=== PATIENT | female | born 1935 | race Caucasian/White ===

== ENCOUNTER 2017-07-14 13:15 | Emergency (ER) | payer MEDICARE ==
[2017-07-14] MEDS ORDERED: LEVOFLOXACIN 750MG/150ML D5W 750 MG/150 ML BAG IV STA (13:22)
[2017-07-14] MEDS ORDERED: DUONEB 0.5-3 MG/3 ml Neb IH ONE ×2 (13:22→14:07)
--- NOTE | 2017-07-14 13:27 | ERPHSYRPT ---
- History of Present Illness Time Seen by Provider: 07/14/17 13:24 Source: patient, EMS Physician History: mild to mod coughing and shortness of breath at [place] today, hx aspiration, denies any pain, hx cva and right side weakness, no fever, no injury Allergies/Adverse Reactions: No Known Drug Allergies Allergy (Verified 07/14/17 13:53) Home Medications: Hydrochlorothiazide 25 mg [hydroDIURIL 25 MG] 25 mg PO DAILY 01/02/12 [ History] Ibuprofen 200 mg [Motrin 200 mg] 200 mg PO BID 05/23/14 [History] Potassium Chloride 10 meq PO TID 05/23/14 [History] Citalopram Hydrobromide [Celexa] 10 mg PO DAILY 07/14/17 [History] Donepezil HCl [Aricept] 5 mg PO DAILY 07/14/17 [History] Esomeprazole Magnesium [Nexium] 20 mg PO DAILY 07/14/17 [History] Memantine HCl [Namenda] 10 mg PO DAILY 07/14/17 [History] Mirtazapine [Remeron] 7.5 mg PO DAILY 07/14/17 [History] Hx Tetanus, Diphtheria Vaccination/Date Given: (UNKNOWN) Hx Influenza Vaccination/Date Given: Yes (2011) Hx Pneumococcal Vaccination/Date Given: Yes (2011) - Review of Systems Constitutional: No Fever Eyes: No Eye Redness Ears, Nose, & Throat: No Mouth Pain Respiratory: Cough, Dyspnea, No Cyanosis Cardiac: No Chest Pain Abdominal/Gastrointestinal: No Abdominal Pain, No Vomiting Musculoskeletal: No Back Pain, No Neck Pain Skin: No Rash Neurological: No Dizziness - Past Medical History Pertinent Past Medical History: Yes Neurological History: Stroke ENT History: No Pertinent History Cardiac History: Hypertension Respiratory History: No Pertinent History Endocrine Medical History: No Pertinent History Musculoskeletal History: Other GI Medical History: GERD, Gallbladder Disease History: No Pertinent History Psycho-Social History: No Pertinent History Female Reproductive Disorders: No Pertinent History Other Medical History: had stroke at age 10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 - Past Surgical History Past Surgical History: Yes Neuro Surgical History: No Pertinent History Cardiac: No Pertinent History Respiratory: No Pertinent History Gastrointestinal: Cholecystectomy Genitourinary: No Pertinent History Musculoskeletal: No Pertinent History Female Surgical History: No Pertinent History - Social History Smoking Status: Never smoker Exposure to second hand smoke: No Alcohol Use: None Drug Use: none Patient Lives Alone: Yes Significant Family History: no pertinent family hx - Nursing Vital Signs Nursing Vital Signs: Initial Vital Signs Temperature 97.4 F 07/14/17 13:22 Pulse Rate 89 07/14/17 13:22 Respiratory Rate 16 07/14/17 13:22 Blood Pressure 151/83 07/14/17 13:22 O2 Sat by Pulse Oximetry 96 07/14/17 13:22 Pain Scale Pain Intensity 0 - Physical Exam General Appearance: no apparent distress Eye Exam: PERRL/EOMI, eyes nml inspection Ears, Nose, Throat Exam: normal pharynx Neck Exam: non-tender Respiratory Exam: wheezing, No respiratory distress, No accessory muscle use Cardiovascular/Chest Exam: regular rate/rhythm Abdominal/Gastrointestinal Exam: soft, No tenderness Extremity Exam: pelvis stable Neurologic Exam: alert, oriented x 3, cooperative Skin Exam: warm, dry SpO2 Interpretation: normal - Course Nursing assessment & vital signs reviewed: Yes EKG Interpreted by Me: Other (ekg 1 nsr 87, st elevation in v2 is exaggerated from 12/2011, and ekg [address] elevation in evolution) - Radiology Exams Chest X-ray Interpretation: Discussed w/ radiologist, No Pneumonia, No Pneumothorax - CT Exams Chest CT Interpretation: Discussed w/radiologist, No PE Ordered Tests: Active Orders 24 hr Category Date Time Status [employer] STAT Care 07/14/17 13:22 Active EKG-ER Only STAT Care 07/14/17 13:22 Active EKG-ER Only STAT Care 07/14/17 14:48 Active IV Insertion STAT Care 07/14/17 13:22 Active Oxygen-ED Only NASAL CANNULA 2 lpm Care 07/14/17 13:22 Active CHEST 1 VIEW (PORTABLE) Stat Exams 07/14/17 13:22 Completed CHEST WITH CONTRAST [CT] Stat Exams 07/14/17 14:29 Completed BLOOD CULTURE Stat Lab 07/14/17 13:35 Received CBC W DIFF Stat Lab 07/14/17 13:45 Completed CMP Stat Lab 07/14/17 13:45 Completed CULTURE,SPUTUM Stat Lab 07/14/17 13:22 Uncollected D-DIMER QUANTITATION Stat Lab 07/14/17 13:45 Completed Lactic Acid Stat Lab 07/14/17 13:22 Completed PROTIME WITH INR Stat Lab 07/14/17 13:45 Completed TROPONIN Q3H Lab 07/14/17 13:59 Completed TROPONIN Q3H Lab 07/14/17 16:25 Completed TROPONIN Q3H Lab 07/14/17 19:30 Ordered TROPONIN Q3H Lab 07/14/17 22:30 Ordered TROPONIN Q3H Lab 07/15/17 01:30 Ordered Respiratory Nebulizer STAT RT 07/14/17 13:23 Completed Medication Summary Discontinued Medications Generic Name Dose Route Start Last Admin Trade Name Freq PRN Reason Stop Dose Admin Albuterol/Ipratropium 3 ml 07/14/17 13:22 07/14/17 14:13 Duoneb 0.5-3 Mg/3 Ml Neb IH 07/14/17 13:23 3 ml STAT ONE Administration Albuterol/Ipratropium Confirm 07/14/17 14:07 Duoneb 0.5-3 Mg/3 Ml Neb Administered 07/14/17 14:08 Dose 3 ml IH .STK-MED ONE Levofloxacin/Dextrose 750 mg in 150 mls @ 100 mls/hr 07/14/17 13:22 07/14/17 13:59 Levofloxacin 750mg/150ml D5w IV 07/14/17 14:51 100 mls/hr STAT STA 100 mls/hr Administration Levofloxacin/Dextrose Confirm 07/14/17 13:54 Levofloxacin 750mg/150ml D5w Administered 07/14/17 13:55 Dose 750 mg in 150 mls @ ud IV .STK-MED ONE Lab/Rad Data: Laboratory Result Diagrams 07/14/17 13:45 07/14/17 13:45 Laboratory Results 07/14/17 07/14/17 07/14/17 Range/Units 16:25 13:59 13:45 WBC (4.0-10.5) K/mm3 RBC (4.1-5.4) M/mm3 Hgb (12.0-16.0) gm/dl Hct (35-47) % MCV (78-100) fl MCH (26-32) pg MCHC (32-36) g/dl RDW (11.5-14.0) % Plt Count (150-450) K/mm3 MPV (6-9.5) fl Gran % (36.0-66.0) % Eos # (Auto) (0-0.5) Absolute Lymphs (auto) (1.0-4.6) Absolute Monos (auto) (0.0-1.3) Lymphocytes % (24.0-44.0) % Monocytes % (0.0-12.0) % Eosinophils % (0.00-5.0) % Basophils % (0.0-0.4) % Absolute Granulocytes (1.4-6.9) Basophils # (0-0.4) PT 11.1 (9.95-12.35) SECONDS INR 0.95 (0.8-3.0) D-Dimer 828.45 H* (215-500) ng/mL Sodium (137-145) mmol/L Potassium (3.5-5.1) mmol/L Chloride (98-107) mmol/L Carbon Dioxide (22-30) mmol/L Anion Gap (5-15) MEQ/L BUN (7-17) mg/dL Creatinine (0.52-1.04) mg/dL Estimated GFR ML/MIN Glucose (74-106) mg/dL Lactic Acid (0.4-2.0) Calcium (8.4-10.2) mg/dL Total Bilirubin (0.2-1.3) mg/dL AST (14-36) U/L ALT (0-35) U/L Alkaline Phosphatase (38-126) U/L Troponin I 0.021 < 0.012 (0.000-0.034) ng/mL Serum Total Protein (6.3-8.2) g/dL Albumin (3.5-5.0) g/dL 07/14/17 07/14/17 07/14/17 Range/Units 13:45 13:45 13:22 WBC 9.7 (4.0-10.5) K/mm3 RBC 5.50 H (4.1-5.4) M/mm3 Hgb 16.5 H (12.0-16.0) gm/dl Hct 48.3 H (35-47) % MCV 87.8 (78-100) fl MCH 30.0 (26-32) pg MCHC 34.2 (32-36) g/dl RDW 14.5 H (11.5-14.0) % Plt Count 274 (150-450) K/mm3 MPV 11.7 H (6-9.5) fl Gran % 75.1 H (36.0-66.0) % Eos # (Auto) 0.11 (0-0.5) Absolute Lymphs (auto) 1.30 (1.0-4.6) Absolute Monos (auto) 0.98 (0.0-1.3) Lymphocytes % 13.4 L (24.0-44.0) % Monocytes % 10.1 (0.0-12.0) % Eosinophils % 1.1 (0.00-5.0) % Basophils % 0.3 (0.0-0.4) % Absolute Granulocytes 7.31 H (1.4-6.9) Basophils # 0.03 (0-0.4) PT (9.95-12.35) SECONDS INR (0.8-3.0) D-Dimer (215-500) ng/mL Sodium 133 L (137-145) mmol/L Potassium 4.7 (3.5-5.1) mmol/L Chloride 99 (98-107) mmol/L Carbon Dioxide 24 (22-30) mmol/L Anion Gap 14.8 (5-15) MEQ/L BUN 19 H (7-17) mg/dL Creatinine 1.00 (0.52-1.04) mg/dL Estimated GFR 56.4 ML/MIN Glucose 101 (74-106) mg/dL Lactic Acid 1.7 (0.4-2.0) Calcium 11.9 H (8.4-10.2) mg/dL Total Bilirubin 0.70 (0.2-1.3) mg/dL AST 44 H (14-36) U/L ALT 19 (0-35) U/L Alkaline Phosphatase 101 (38-126) U/L Troponin I (0.000-0.034) ng/mL Serum Total Protein 7.7 (6.3-8.2) g/dL Albumin 4.1 (3.5-5.0) g/dL - Progress Progress: improved Discussed with : Pura Will see patient in: office Counseled pt/family regarding: lab results, diagnosis, need for follow-up, rad results - Departure Time of Disposition: 17:23 Departure Disposition: Extended Care Facility Clinical Impression: Cough Condition: Stable Critical Care Time: No Referrals: GERRY INFANTE [Primary Care Provider] - Instructions: Cough, Adult (DC) Additional Instructions: continue present medical regimen and levaquin as d/w Dr Neves
[2017-07-14] MEDS ORDERED: LEVOFLOXACIN 750MG/150ML D5W 750 MG/150 ML BAG IV ONE (13:54)
--- NOTE | 2017-07-14 14:05 | XRAY ---
Indication: Cough. Comparison: January 02, 2012. Portable chest is limited due to underinflated lungs and rotation. New right midlung subsegmental atelectasis/scarring and interval enlarging large hiatal hernia. Bony thorax again demonstrates osteopenia and degenerative changes. Repeat exam with better inspiration/patient positioning or a CT chest is recommended.
[2017-07-14 14:09] LABS: BASOPHIL % 0.3 % (0.0-0.4); Basophil (Absolute #) 0.03 (0-0.4); Eosinophil % 1.1 % (0.00-5.0); Eosinophil (Absolute #) 0.11 (0-0.5); Granulocyte Absolute (ANC) 7.31 (1.4-6.9); Granulocytes % 75.1 % (36.0-66.0); Hematocrit 48.3 % (35-47); Hemoglobin 16.5 gm/dl (12.0-16.0); Lymphocytes % 13.4 % (24.0-44.0); Mean Cell Volume 87.8 fl (78-100); Mean Corpuscular Hgb Concent. 34.2 g/dl (32-36); Mean Platelet Volume 11.7 fl (6-9.5); Monocyte (Absolute #) 0.98 (0.0-1.3); Monocytes % 10.1 % (0.0-12.0); Platelet Count 274 K/mm3 (150-450); Red Cell Distribution Width 14.5 % (11.5-14.0); White Blood Count 9.7 K/mm3 (4.0-10.5)
[2017-07-14 14:16] LABS: INR 0.95 (0.8-3.0)
[2017-07-14 14:21] LABS: ALBUMIN 4.1 g/dL (3.5-5.0); ANION GAP 14.8 MEQ/L (5-15); BILIRUBIN,TOTAL 0.7 mg/dL (0.2-1.3); Calcium 11.9 mg/dL (8.4-10.2); Potassium 4.7 mmol/L (3.5-5.1); Total Protein 7.7 g/dL (6.3-8.2)
[2017-07-14 14:24] LABS: D-DIMER QUANTITATION 828.45 ng/mL (215-500)
--- NOTE | 2017-07-14 15:36 | XRAY ---
Indication: Cough. Elevated D dimer. Altered mental stasus. Multiple contiguous axial images obtained through the chest using 80 cc Isovue 370 contrast and PE protocol. Comparison: December 30, 2006. There is satisfactory opacification of the pulmonary arteries. However respiration artifact limits evaluation of the lobar and segmental branches. No central pulmonary embolus. Interval enlarging large hiatal hernia with now intrathoracic stomach and loop of transverse colon effacing the heart. Heart is not enlarged. Aorta is normal in course and caliber. No pathologic mediastinal/hilar lymphadenopathy. Respiration artifact also limits evaluation of the lung parenchyma. Lungs are markedly underinflated today with scattered bilateral subsegmental atelectasis, greatest in the lung bases. No consolidation or large effusion. Bony thorax now demonstrates marked accentuated thoracic kyphosis with now multilevel remote-appearing thoracolumbar compression deformities throughout. Stable osteopenia. Limited upper abdomen again demonstrates cholecystectomy. New 11 mm right mid renal cortical cyst. Impression: 1. Pulmonary embolus evaluation limited due to diffuse respiration artifact. No large central pulmonary embolus. 2. Respiration artifact and markedly underinflated lungs also limits evaluation of the lung parenchyma. Scattered bilateral atelectasis. 3. Again osteopenia. New remote-appearing multilevel thoracolumbar compression deformities with now markedly accentuated thoracic kyphosis. 4. Interval enlarging large hiatal hernia with now intrathoracic stomach and loop of transverse colon. 5. Right renal cyst. CT DI 26.67
[2017-07-14 19:22] VITALS: BP 166/93; PULSE 76; O2SAT 97
== END 2017-07-14 19:58 ==
LOC: ED 13:15
DX: R05 Cough (principal); R06.02 Shortness of breath; Z79.899 Other long term (current) drug therapy; I69.851 Hemiplegia and hemiparesis following other cerebrovascular disease affecting right dominant side
CPT/HCPCS: 36000; 36415; 71045; 71260; 80053; 83605; 84484; 85025; 85379; 85610; 87040; 93005; 93041; 94640; 99284; J1956; A9270-GY